=== PATIENT | male | born 1990 | race Caucasian/White ===

== ENCOUNTER 2020-02-29 19:18 | Observation (INO) | payer OTHER, SELFPAY ==
--- NOTE | ~2020-02-29 | US_ITS ---
EXAMINATION: US renal BI EXAM DATE: 03/01/2020 11:10 INDICATION: Acute kidney insufficiency. TECHNIQUE: Multiple grayscale and Doppler images of the kidneys were obtained (by a technologist who performed the scan) and subsequently reviewed. There is no prior study for comparison. FINDINGS: Right kidney: There is normal contour and echogenicity. It measures 11.7 x 4.6 x 6.6 centimeters. T here are no focal renal lesions identified. There is no hydronephrosis. Left kidney: There is normal contour and echogenicity. It measures 13.9 x 5.7 x 5.4 centimeters. Th ere are no focal renal lesions identified. There is no hydronephrosis. Bladder unremarkable. IMPRESSION: 1. Sonographically unremarkable kidneys. Reviewed, dictated and finalized at location B.
[2020-02-29 19:22] VITALS: BP 145/100; PULSE 98; RESP 18; TEMP 36.8; O2SAT 100
[2020-02-29 19:58] LABS: Basophils Percent Auto 0.2 % (0.2-1.2); Eosinophils Absolute Auto 0.5 K/mm3 (0-0.3); Eosinophils Percent Auto 5.4 % (0-4.4); Hematocrit 39.5 % (42.0-52.0); Hemoglobin 13.3 g/dL (14.0-18.0); Immature Granulocyte Absolute 0.02 K/mm3 (0.00-0.031); Immature Granulocyte Percent A 0.2 % (0-0.5); Lymphocytes Absolute Auto 1.18 K/mm3 (0.9-3.2); Lymphocytes Percent Auto 12.8 % (18.3-44.2); Mean Corpuscular HGB Conc 33.7 g/dl (32-36); Mean Corpuscular Hemoglobin 28.7 pg (26-34); Mean Corpuscular Volume 85.1 fl (80-100); Mean Platelet Volume 8.3 fl (7.4-10.4); Monocytes Absolute Auto 0.7 K/mm3 (0.1-0.6); Monocytes Percent Auto 7.3 % (2.6-8.5); Neutrophils Absolute Auto 6.8 K/mm3 (1.3-6.7); Neutrophils Percent Auto 74.1 % (45.5-73.1); Platelet Count Result 273 k/mm3 (150-375); Red Blood Count 4.64 M/mm3 (4.6-6.20); White Blood Count 9.2 K/mm3 (4.5-10.0)
[2020-02-29 20:06] LABS: Add Urine Microscopic? YES; Appearance Urine Clear (Clear); Bilirubin Urine Negative (Negative); Blood Urine Negative (Negative); Color Urine Yellow (Yellow); Glucose Urine UA Negative (Negative); Ketones Urine Negative (Negative); Leukocyte Esterase Ur Negative LEU/UL (Negative); Mucus Urine Few /lpf; Nitrate Urine Negative (Negative); Protein Urine 1+ mg/dL (Negative); RBC Urine 0-2 /hpf (0-2); Squamous Epithelial Cell Urine Rare /hpf (Few); WBC Urine 0-3 /hpf
[2020-02-29 20:07] LABS: Specific Grav Ur 1.032 (1.001-1.035)
[2020-02-29 20:08] LABS: Creatine Kinase 222 U/L (55-170)
[2020-02-29 20:10] LABS: Blood Urea Nitrogen 22 mg/dL (9-20); Calcium 8.7 mg/dL (8.4-10.2); Carbon Dioxide 26 mmol/L (22-30); Chloride 105 mmol/L (98-107); Estimated CRCL calculation 75 ml/min; Estimated Glomerular Filt Rate 47; Glucose 100 mg/dL (75-110); INR 1.1; Potassium 3.7 mmol/L (3.4-5.0); Prothrombin Time 13.5 Seconds (11.1-14.7); Sodium 141 mmol/L (137-145)
[2020-02-29 20:11] LABS: Partial Thromboplastin Time 28.6 SECONDS (22.3-36.8)
--- NOTE | 2020-02-29 20:51 | ED.GENADULT ---
HPI - General Adult General Chief complaint: Skin/Abscess/Foreign Body Stated complaint: I got a bite on my leg Time Seen by Provider: 02/29/20 19:23 History of Present Illness HPI narrative: Patient is a 29 y/o CM who p/w a lesion to the left calf and rash to the lower extremities. Patient reports he noticed a bump on his leg yesterday that was itching. He feels like it was blistered and popped today. Also today he developed a rash to the lower extremities. It is red and nonblanching. Is not painful. Reports mild calf discomfort on the left side. No lymphangitic streaking. No fevers but does report chills/sweats last night. He reports that 3 days ago he was cleaning his garage and there was some brown recluse spiders in there but he does not recall being bit or having any pain on Thursday or Thursday. Related Data Home Medications Medication Instructions Recorded Confirmed No Home Medications 02/29/20 02/29/20 Allergies Allergy/AdvReac Type Severity Reaction Status Date / Time No Known Allergies Allergy Unverified 02/29/20 19:20 Review of Systems Constitutional: Constitutional: Denies chills and Reports fever(s) Comments: Sweats at night ENT: Denies nasal congestion and Denies sore throat Cardiovascular: Cardiovascular: Denies chest pain and Denies radiating jaw, neck or arm pain Respiratory: Respiratory: Denies cough, Denies dyspnea and Denies wheezing Musculoskeletal: Musculoskeletal: Reports muscle cramps Integumentary/Breasts: Skin/Breast: Reports pruritus, Reports rash and Reports skin ulcer PMFSH Past Medical History Medical History No pertinent past medical history Surgical History Surgical History No pertinent past surgical history Family History Family History Mother Acute myocardial infarction Social History Social History Smoking status: Never smoker Alcohol intake: current Drinks per week: 1 Substance use: current Substance use type: marijuana Gender identity (if verbalized by the patient): Male Spiritual care concerns: No Exam Narrative: Exam Narrative: GENERAL: Well-appearing, obese, and in no acute distress. HEAD: Normocephalic, atraumatic. ENT: Mucous membranes moist. CHEST: Clear to auscultation. No respiratory distress. HEART: Regular rate and rhythm. Normal peripheral pulses. EXTREMITIES: Normal range of motion. No edema. SKIN: Warm, dry, petechiae to bilateral lower extremities. Left calf with area of skin disruption that is about the size of a dime. Underlying red tissue that is not cellulitic or truly ulcerated, no drainage. NEURO: Alert and oriented x3. PSYCH: Normal mood and affect. Course Course Emergency Course: Discussed case with Dr. Keys and he will be happy to follow along as well as Dr. Mcdaniel who will see the patient in consultation for potential debridement of wound and potential biopsy of rash. Given the bilateral nature of the petechiae I am concerned patient could have some vasculitis that is causing his skin disruption as well as renal insufficiency. Vital Signs Vital signs: Vital Signs Temperature 98.2 F 02/29/20 19:22 Pulse Rate 98 02/29/20 19:22 Respiratory Rate 18 02/29/20 19:22 Blood Pressure 145/100 H 02/29/20 19:22 Pulse Oximetry 100 02/29/20 19:22 Temperature 99.2 F 03/01/20 01:38 Pulse Rate 92 03/01/20 01:38 Respiratory Rate 12 03/01/20 01:38 Blood Pressure 142/93 H 03/01/20 01:38 Pulse Oximetry 99 03/01/20 01:38 Medical Decision Making Vital Signs Vital Signs: Vital Signs Temperature 98.2 F 02/29/20 19:22 Pulse Rate 98 02/29/20 19:22 Respiratory Rate 18 02/29/20 19:22 Blood Pressure 145/100 H 02/29/20 19:22 Pulse Oximetry 100 02/29/20 19:22 Tempera
[2020-02-29 21:38] VITALS: BP 154/98; PULSE 84; RESP 19; TEMP 36.4; O2SAT 100
[2020-02-29 23:26] VITALS: BP 134/87; PULSE 70; RESP 19; O2SAT 100
[2020-03-01 00:50] VITALS: BP 144/87; PULSE 80; RESP 19; TEMP 37.2; O2SAT 100
--- NOTE | 2020-03-01 00:54 | ADMGEN ---
This patient, Beck Perla, was admitted to Medical Room 250-. Patient/family oriented to hospital policies and general routines including ID bracelet, bed and alarms, visiting hours, pain management, procedures, bathroom and other care routines, personal items, smoking policy, room service/diet, and visiting hours. Valuables list has been completed. Information on how to activate the Rapid Response Team has been discussed. Patient/Family are encouraged to report perceived risks to care and to ask questions if they do not understand what they are told or what they should do.
[2020-03-01] MEDS: SODIUM CHLORIDE 0.9% IV 1,000 ML 125 ML IV CONT ×2 (01:05→07:57)
[2020-03-01 01:31] VITALS: BMI 36.3
[2020-03-01 01:38] VITALS: BP 142/93; PULSE 92; RESP 12; TEMP 37.3; O2SAT 99
--- NOTE | 2020-03-01 03:44 | PM.IMHP ---
H&P: HPI History of Present Illness Chief complaint: renal insufficiency, spider bite, vasculitis Narrative: This is a 29 year old male with know significant past medical history who presented to the hospital with a complaint of a deep purplish lesion located on the back of his left lower leg. The patient believes that he might have gotten bitten by a recluse spider while he was in his garage the day before yesterday. He initially noticed a bump on his leg that was pruritic. The lesion became a blister and opened. Yesterday he noticed a rash to both of his lower extremities which only involves the lower aspect of both legs and is red and pin point and does not leola. The patient denies any respiratory symptoms, recent illness, fevers, wheezing, nasal symptoms, hematuria, chest pain, headache, blurry vision, nausea, vomiting, diarrhea or rectal bleeding. He does however report chills and sweats last night. He has also had mild diffuse abdominal discomfort, diffuse body aches and joint aches. Both of his hands feel tingly. He has been using ibuprofen every other day for the past few weeks. He denies any recent exposure to contrast agents. The patient was evaluated in the ER tonight and found to have a petechial vasculitic rash involving both of his lower extremities. He was also found to have mild acute renal failure and eosinophilia on routine labs. Urinalysis demonstrated + protein but no microscopic hematuria. ER provider has consulted Nephrology and Plastic Surgery to evaluate the patient and we have been asked to admit him for further care. No other complaints. Review of Systems Review of Systems: All systems reviewed & are unremarkable except as noted in HPI and below PMFSH Past Medical History Medical History No pertinent past medical history Surgical History Surgical History No pertinent past surgical history Family History Family History Mother Acute myocardial infarction Social History Social History Smoking status: Never smoker Alcohol intake: current Drinks per week: 1 Substance use: current Substance use type: marijuana Gender identity (if verbalized by the patient): Male Spiritual care concerns: No Meds Home Medications and Allergies Home Medications Medication Instructions Recorded Confirmed Type No Home Medications 02/29/20 02/29/20 History Allergies Allergy/AdvReac Type Severity Reaction Status Date / Time No Known Allergies Allergy Unverified 02/29/20 19:20 Vital Signs Vital Signs - 24 hr 02/29/20 19:22 02/29/20 21:38 02/29/20 23:26 Temperature 36.8 C 36.4 C Pulse Rate 98 84 70 Respiratory Rate 18 19 19 Blood Pressure 145/100 H 154/98 H 134/87 Pulse Oximetry 100 100 100 03/01/20 00:50 03/01/20 01:38 Temperature 37.2 C 37.3 C Pulse Rate 80 92 Respiratory Rate 19 12 Blood Pressure 144/87 H 142/93 H Pulse Oximetry 100 99 Exam Const: General: cooperative, healthy appearing, no acute distress, alert and awake Nutritional Appearance: well nourished Orientation/consciousness: patient oriented x3 HENMT: Head: normal to inspection General nose exam: Normal external nose present Face and sinus: normal facial exam Mouth: Yes Normal oral and palatal mucosa present and Yes oropharynx normal Eyes: Pupils: Equal, round and reactive pupils present EOM: EOMs intact bilaterally Neck: Neck: supple and no JVD Thyroid: thyroid normal Resp: Effort & Inspection: normal respiratory effort Auscultation: clear to auscultation bilaterally Cardio: Rate: regular rate Rhythm: regular rhythm Heart sounds: no murmurs GI: Inspection: normal to inspection Auscultation: normal bowel sounds Skin: General skin exam: normal color, petechiae (Bilateral pe
[2020-03-01 06:00] VITALS: BP 126/77; PULSE 96; RESP 12; TEMP 37; O2SAT 99
[2020-03-01 06:22] LABS: Basophils Percent Auto 0.2 % (0.2-1.2); Eosinophils Absolute Auto 0.4 K/mm3 (0-0.3); Eosinophils Percent Auto 3.4 % (0-4.4); Hematocrit 36.4 % (42.0-52.0); Hemoglobin 12.4 g/dL (14.0-18.0); Immature Granulocyte Absolute 0.02 K/mm3 (0.00-0.031); Immature Granulocyte Percent A 0.2 % (0-0.5); Lymphocytes Absolute Auto 0.87 K/mm3 (0.9-3.2); Lymphocytes Percent Auto 8.2 % (18.3-44.2); Mean Corpuscular HGB Conc 34.1 g/dl (32-36); Mean Platelet Volume 8.9 fl (7.4-10.4); Monocytes Absolute Auto 0.8 K/mm3 (0.1-0.6); Monocytes Percent Auto 7.1 % (2.6-8.5); Neutrophils Absolute Auto 8.5 K/mm3 (1.3-6.7); Neutrophils Percent Auto 80.9 % (45.5-73.1); Platelet Count Result 251 k/mm3 (150-375); Red Blood Count 4.28 M/mm3 (4.6-6.20); Red Cell Distribution Width 11.8 % (11.5-14.5); White Blood Count 10.6 K/mm3 (4.5-10.0)
[2020-03-01 06:37] LABS: Blood Urea Nitrogen 20 mg/dL (9-20); Calcium 8.2 mg/dL (8.4-10.2); Carbon Dioxide 25 mmol/L (22-30); Chloride 106 mmol/L (98-107); Estimated CRCL calculation 145 ml/min; Estimated Glomerular Filt Rate > 60; Glucose 102 mg/dL (75-110); Potassium 3.8 mmol/L (3.4-5.0); Sodium 135 mmol/L (137-145)
[2020-03-01 06:39] LABS: CRP 6.6 mg/dL (<1.0)
[2020-03-01 06:43] LABS: Complement C3 121 mg/dL (88-165); Rheumatoid Factor < 8.6 IU/ML (<12)
[2020-03-01 07:10] LABS: Creatinine Urine 149.8 mg/dL; Total Protein Urine Random 9 mg/dL
[2020-03-01 07:21] LABS: HIV 1/2 Ab P24 Ag Result Negative (Negative)
[2020-03-01 07:21] LABS: Sodium Urine Random 245 meq/L
[2020-03-01 07:56] LABS: Erythrocyte Sedimentation Rate 27 mm/hr (0-20)
[2020-03-01] MEDS: ENOXAPARIN 40 MG/0.4 ML SYRINGE SUB-Q (07:58)
[2020-03-01 10:31] LABS: Hepatitis B Surface Antigen Negative (Negative)
[2020-03-01 11:12] LABS: Hepatitis C Virus Antibody Negative (Negative)
--- NOTE | 2020-03-01 11:39 | WPDCN ---
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 No surgicl intervention planned at this time. Recommend continue IV antibiotics, possibly oral Abx at home. May follow up in my office. Tingling in fingers not known to be directly related. He has no signs of CTS. Fever, chills, rash and GI symptoms may accompany a BR bite. Silvergel dressing daily. May shower. (4) Chronic venous insufficiency of lower extremity: Code(s): I87.2 - Venous insufficiency (chronic) (peripheral) Status: Acute Assessment and Plan: Pt does not report morbidity related to this but should discuss it with his Primary MD. (5) Tobacco dependence: Code(s): F17.200 - Nicotine dependence, unspecified, uncomplicated Status: Acute Assessment and Plan: Managed by others. (6) Cellulitis and abscess of left lower extremity: Onset Date: ~02/2020 Code(s): L03.116 - Cellulitis of left lower limb; L02.416 - Cutaneous abscess of left lower limb Status: Acute Assessment and Plan: I will monitor this daily while in hospital, office later. Likely will respond to antibiotics. Surgical debridement occasionally required. Additional Plan I will follow. [facility] Data of Consult Date/Time: 03/01/20 11:39 Requesting Physician: Soniya Fraga PA-C Primary Care Provider: MATHEMATICIAN PHYSICIAN Consult Narrative Narrative: Beck Perla is a 29 year old male who was admitted yesterday after being at work. His complaint was primarily pain and skin discoloration in a 2 x 3 cm area on his right calf. He believed onset was Thursday while he was working in his garage. He says there were brown recluse spiders of the garage. He does not recall a bite. The area began to itch and developed blistering. This area has become quite painful. On admission he has erythema surrounding this. There is no lymphangitis. He had a low-grade fever around the time of admission. He tells me he does smoke. On admission he was noted to have a rash or vasculitis covering both lower legs from mid calf to his ankle. He says this does not itch. He points that that he has large sometimes swollen legs with notable varicosities. He is aware that as a chronic condition he has had brown patches on his legs related to the above. He is able to distinguish between the new vasculitic appearance and the chronic brawny induration. He has no history of ulcerations from venous stasis disease. 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 He wears boots up to the mid calf. These are rubber. He works along the [place]. He is not aware that anything would have gotten inside of his boot. The area the boots cover is roughly the same area as his vasculitis or rash. He is not sure how long he would have had the rash/vasculitis he thinks he might have simply overlooked it. On admission he also complained of some tingling or numbness in both hands. At the time I am seeing him this has resolved. Some of his labs on admission suggest he may have been dehydrated. He says he tries to drink approximately a gal of water each day while he is working. Review of Systems Review of Systems: All systems reviewed & are unremarkable except as noted in HPI and below Constitutional: Constitutional: Reports as per HPI Respiratory: Respiratory: Reports no additional respiratory co
[2020-03-01 14:19] LABS: Hepatitis B Surface Anti Res Indeterminate
[2020-03-01 14:23] VITALS: BP 145/80; PULSE 93; RESP 18; TEMP 36.9; O2SAT 99
--- NOTE | 2020-03-01 15:20 | PM.CNNEP ---
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 Additional Plan Beck had an episode of acute kidney injury/acute renal failure that appears to have resolved by his a.m. labs. It would appear that when he was working in his garage he may not have been adequately hydrate himself thereby resulting in some degree of volume depletion/dehydration the presumably cause the a for mentioned rise in his creatinine. Without any significant intervention other than IV fluids, his kidney function at this her in back to baseline argue in favor of this diagnosis. I am unclear as to the relevance of the a for mentioned petechial rash and whether not this even related to his renal failure or a coincidence that occurred at the same time. Given the concern for possible vasculitis he underwent an extensive serological evaluation and although all the test results are not back, the ones that have resulted have so far been negative. The etiology of the a for mentioned rash may be as simple as a contact dermatitis from the shoes/boots he was wearing versus some other etiological agent that may not be completely clear but it would seem that vasculitis seems less likely. As his renal function is back to baseline and he has no other critical electrolyte abnormalities or acute concerns, I would not be opposed to discharge with follow-up with Dr. Mcdaniel to assess improvement in that rash and suspected brown recluse spider bite. Thank you for allowing me to participate in the care this patient. History of Present Illness Reason for Consult Consult date: 03/01/20 Reason for consult: acute renal failure Chief Complaint Chief complaint: renal insufficiency, spider bite, vasculitis History of Present Illness Narrative: 29 year old male with no significant past medical history who presented to [facility] with a complaint of a deep purplish lesion located on the back of his left lower leg. The patient has concerns that he might have gotten bitten by a brown recluse spider while he was in cleaning his garage the day before admission. He initially noticed a bump on his leg that was pruritic. The lesion became a blister spontaneously ruptured. Following this, he noticed a rash to both of his lower extremities which only involves the lower aspect of both legs and is red and pin point and does not leola. He denies any other systemic symptoms or problems aside from some chills and occassional night sweats associated with diffues body and joint aches. Workup and evaluation emergency room demonstrated the patient to be hemodynamically stable and his physical exam did not note a PT kill/vasculitic rash involving both of his lower extremities. Routine blood tests were significant for acute kidney injury/acute renal failure in association with SNF ileus. His urinalysis was significant for 1+ protein but no evidence of hematuria or red cell casts. Because of the concern for possible vasculitis that may be causing his renal failure and other subjective symptoms, he was admitted the hospital for further evaluation and therapy. Renal consultation was requested due to the a for mentioned acute kidney injury/acute renal failure. Interestingly, at the time my evaluation, his kidney function has returned to normal after IV fluid hydration overnight. On further questioning with the patient, he believes that when he was working out in the garage he may not have been drinking as much as she should of to keep himself hydrated. Furthermore, he now wonders if issues/boots he wa
--- NOTE | 2020-03-01 15:32 | PM.IMPN ---
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 r/o microscopic polyangiitis as the patient his eosinphilia, kidney involvement, and neuropathy affecting his hands among other types of vasculitis and mimickers. At this time we will give benadryl and elevate his legs for his symptoms. Check ANCA, NA, RF, C3, C4, Hep B and C, HIV, ERS, CRP.. We will consider initiating steroid therapy. Plastic Surgery has been consulted to evaluate the patient's purpuric lesion. (2) Acute renal failure: Code(s): N17.9 - Acute kidney failure, unspecified Status: Acute Assessment and Plan: dehdyration vs. vasculitis? - Continue IV fluid challenge overnight. Monitor renal function, avoid nephrotoxic agents, renally dose medications. Nephrology has been consulted by ER provider. (3) Tobacco dependence: Code(s): F17.200 - Nicotine dependence, unspecified, uncomplicated Status: Acute Assessment and Plan: I counseled the patient regarding tobacco cessation. He does not desire a nicotine patch at this time. Time Spent With Patient Time with patient: 25 - 35 minutes Subjective Date/time seen: 03/01/20 15:32 Interval history: * Review of Systems Review of Systems: All systems reviewed & are unremarkable except as noted in HPI and below Exam Narrative: Exam Narrative: General: *-year-old * laying flat in bed. Appears comfortable. In no acute distress. Skin: No jaundice or cyanosis. Good skin turgor. Neck: Full range of motion. Supple. Nontender. Respiratory: Lungs are clear to auscultation bilaterally. No bony chest wall tenderness. Cardiovascular: The heart has a regular rate and rhythm without murmur. No carotid bruits. Lower extremities: No lower extremity edema. Distal pulses are easily palpated. No calf tenderness to palpation. Gastrointestinal: The abdomen is soft, nontender and nondistended with active bowel sounds. Psychiatric: Lucid and oriented. Memory intact. Neurologic: No focal deficits. Speech is clear. No facial drooping. Objective Data Vital Signs Vital Signs: Vital Signs - 24 hr 02/29/20 19:22 02/29/20 21:38 02/29/20 23:26 Temperature 98.2 F 97.6 F Pulse Rate 98 84 70 Respiratory Rate 18 19 19 Blood Pressure 145/100 H 154/98 H 134/87 Pulse Oximetry 100 100 100 03/01/20 00:50 03/01/20 01:38 03/01/20 06:00 Temperature 98.9 F 99.2 F 98.6 F Pulse Rate 80 92 96 Respiratory Rate 19 12 12 Blood Pressure 144/87 H 142/93 H 126/77 Pulse Oximetry 100 99 99 03/01/20 14:23 Temperature 98.5 F Pulse Rate 93 Respiratory Rate 18 Blood Pressure 145/80 H Pulse Oximetry 99 Intake/Output Intake/Output: Intake & Output 02/27/20 02/28/20 02/29/20 03/01/20 23:59 23:59 23:59 23:59 Intake Total 1480 Output Total 70 Balance 1410 Meds/Results Medications: Active Medications Generic Name Dose Route Start Last Admin Trade Name Freq PRN Reason Stop Dose Admin Acetaminophen 650 mg 02/29/20 23:59 Tylenol Tablet PO Q4H PRN Mild Pain (1-3) or Fever Hydrocodone Bitart/Acetaminophen 1 tab 02/29/20 23:59 03/01/20 07:57 Marilla 5-325 Mg PO 1 tab Q4H PRN Administration Pain Rated 4-6 Enoxaparin Sodium 40 mg 03/01/20 09:00 03/01/20 07:58 Lovenox SUB-Q 40 mg DAILY STEPHANIE Administration Sodium Chloride 1,000 mls @ 125 mls/hr 02/29/20 23:45 03/01/20 07:57 Normal Saline Iv IV CONT 125 mls/hr .Q8H STEPHANIE Administration Morphine Sulfate 4 mg 02/29/20 23:59 Morphine Sulfate Inj IV PUSH Q2H PRN Pain Rated 7-10 Ondansetron HCl 4 mg 02/29/20 23:59 Zofran Inj IV PUSH Q4H PRN Nausea Silver Nitrate 1 applic 03/01/20 13:05 Silvergel TOPICAL QAM [facility] Radiology Results: ITS Impressions Renal Ultra
--- NOTE | 2020-03-01 15:45 | PM.DS ---
DS: Admitting Diagnosis Admitting Diagnosis Admitting Diagnosis: Vasculitis limited to the skin, unspecified DS: Discharge Diagnosis Discharge Diagnosis (1) Brown recluse spider bite: Code(s): T63.331A - Toxic effect of venom of brown recluse spider, accidental (unintentional), initial encounter Status: Acute Assessment and Plan: On examination the patient appears to have a brown recluse spider bite to his left upper calf. Dr. Mcdaniel plastic surgery evaluated the patient and recommends placing him on antibiotics and having him follow-up in the office as an outpatient. Dr. Mcdaniel did not feel he needed any debridement at this time of his wound. The patient is otherwise feeling well at this time without any concerns or issues. He believes some of the redness around the spider bite has gone down since admission. The patient states he has to go home because he has his 2 children in his grandmother who is 90 is taking care of them currently. I believe the patient is stable to discharged and will given oral antibiotics, Keflex, to be discharge with further treatment of his spider bite. Explained the patient's of risks of going home and worsening symptoms that can occur her and return to emergency room precautions. Patient understands and agrees the plan at this time. Will have the patient call Dr. Mcdaniel and have a appointment within 1 week for further evaluation upon discharge. Patient does not have a primary care provider but I recommended him to find one and again follow-up for further evaluation. 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 So far his rheumatoid factor is normal, hep B and C are both normal, his HIV is negative. His complements testing C3 and C4 are both negative as well. His CRP and ESR are elevated which is not uncommon with his infection from brown recluse spider bite. Pending his NA at this time. Patient will be discharged home and recommended him to follow-up with his primary care provider within [address] Mcdaniel. (3) Acute renal failure: Code(s): N17.9 - Acute kidney failure, unspecified Status: Acute Assessment and Plan: dehdyration seems to be the most likely cause since he works outside. Creatinine returned to normal after IV fluids. Told him to remain hydrated and will be discharged home. (4) Tobacco dependence: Code(s): F17.200 - Nicotine dependence, unspecified, uncomplicated Status: Acute Assessment and Plan: I counseled the patient regarding tobacco cessation. He does not desire a nicotine patch at this time. DS: Summary Hospital Course Reason for hospitalization: 29-year-old man with no chronic medical history, who presented to the ER with worsening pain, swelling, redness and a large darkened area to his left calf which he noticed about 24 hours earlier while at work. Patient works outside wears large boots and when he removed his boots he saw there was a darkened area to his skin and symptoms became worse today which brought him to the ER. Initial vitals showed temperature of 98.2?, blood pressure 145/100, heart rate 98, respiratory rate 18, oxygen saturation 100% on room air. Initial labs showed, WBC 9.2 with elevated neutrophils at 74%, slight normocytic anemia with a hemoglobin of 13.3, normal coag panel, BMP showed creatinine was elevated 1.7, BUN 22, total CK was 222. CRP was elevated at 6.6. Urinalysis showed 1+ protein and urobilinogen 4. He was admitted for IV fluid hydration for JACQUELIN, further evaluation of wound to leg which included work up for vasculitis, rule out Hepat
[2020-03-01] MEDS: SILVERGEL (ELTA) 45 ML 1 APPLIC TOPICAL (16:15)
[2020-03-05 22:08] LABS: ANCA Screen Negative (Negative)
--- NOTE | 2020-03-06 13:51 | PC.NURSE ---
NA and ANCA are both negative.
[2020-03-06 16:56] LABS: Chloride Rand Ur 178 mmol/L (32-290); Chloride/Creatinine Rand Ur 124 (23-275); Creatinine Random Urine 143 mg/dL (20-320)
[2020-03-06 22:44] LABS: Myoglobin, Urine <27 mcg/L (<28)
== END 2020-03-01 17:29 | disposition home or self-care (01) ==
LOC: ANHED 23:47 → ANH2MED 03-01 00:29
PROVIDERS: Internal Medicine Nephrology; Admitting Provider Family Medicine; Emergency Provider Emergency Medicine; Visit Provider Internal Medicine
DX: L95.9 Vasculitis limited to the skin, unspecified (principal); L03.116 Cellulitis of left lower limb; N17.9 Acute kidney failure, unspecified; T63.331A Toxic effect of venom of brown recluse spider, accidental (unintentional), initial encounter; I87.2 Venous insufficiency (chronic) (peripheral)
CPT/HCPCS: 36415; 76775; 80048; 81001; 81050; 82436; 82550; 82570; 83874; 84156; 84300; 85025; 85610; 85652; 85730; 85999; 86021; 86038; 86140; 86160; 86430; 86703; 86706; 86803; 87340; 96361; 96365; 96372; 96375; 99285; A9270; G0378; G0432; J0690; J1200; J1650; J7030

== ENCOUNTER 2021-06-10 11:40 | Emergency (ER) | payer OTHER, SELFPAY ==
[2021-06-10 11:49] VITALS: BP 127/81; PULSE 70; RESP 16; TEMP 36.2; O2SAT 100
--- NOTE | 2021-06-10 12:21 | ED.SKABFB ---
HPI - Skin/Abscess/Foreign Bdy General Chief complaint: Wound/Laceration Stated complaint: Insect Bite Source: patient and RN notes reviewed Mode of arrival: ambulatory Limitations: no limitations History of Present Illness HPI narrative: Patient states he woke up Thursday with a small bump in his left axillae 3 days ago. He states by the following day redness was on his posterior arm along bicep and increasing in size daily. Denies fever, chills. states pain is 6/10 at rest and 10/10 at bedtime. He has taken Ibuprofen for pain relief at home. Patient states he has full movement and sensation of left arm. Related Data Allergies Allergy/AdvReac Type Severity Reaction Status Date / Time No Known Allergies Allergy Unverified 02/29/20 19:20 Review of Systems Review of Systems: CONSTITUTIONAL: Denies body aches, fever, chills, or sweats. EYES: Denies visual changes, redness, or discharge. ENT: Denies rhinorrhea, congestion, sore throat, or otalgia. CARDIOVASCULAR: Denies chest pain, palpitations, or edema. RESPIRATORY: Denies cough or dyspnea. GASTROINTESTINAL: Denies abdominal pain, nausea, vomiting, or diarrhea. GENITOURINARY: Denies dysuria or hematuria. SKIN: + redness to left axillae and bicep, + bump in left axilla .Denies rash, itching, or wounds. MUSCULOSKELETAL: Denies back pain, joint pain, or myalgia. NEUROLOGIC: Denies headache, numbness, tingling, or weakness. PSYCH: Denies depression or anxiety. [facility] Past Medical History Medical History (Updated 06/10/21 @ 12:35 by Maria Del Carmen Choi, [facility], ) No pertinent past medical history Surgical History Surgical History No pertinent past surgical history Family History Family History Mother Acute myocardial infarction Social History Social History Smoking status: Never smoker Alcohol intake: current Drinks per week: 1 Substance use: current Substance use type: marijuana Gender identity (if verbalized by the patient): Male Spiritual care concerns: No Comments At time of signature, I have reviewed and agree with nursing past medical, surgical, social and family history unless otherwise noted. Please see nursing chart for further information. There is no relevant family history pertinent to the presenting complaint Exam Narrative: GENERAL: Well-appearing, well-nourished, and in no acute distress. HEAD: Normocephalic, atraumatic. EYES: EOMI. No redness or drainage. Conjunctivae normal. ENT: Mucous membranes pink and moist. NECK: Normal AROM. Supple. No lymphadenopathy. MUSCULOSKELETAL: No bony tenderness. EXTREMITIES: Normal range of motion. 30cm x 12cm area of erythema to medial upper arm, warm to touch. No induration, no fluctuance. Distal sensation intact. Capillary refill normal. Radial pulse normal. Full range of motion of the wrist, elbow, and shoulder. SKIN: Warm, dry, no rash. Capillary refill normal. Normal skin turgor. NEURO: No focal deficits. Alert and oriented x3. Gait steady. PSYCH: Normal affect. No signs of depression or anxiety. Course Vital Signs Vital signs: Vital Signs Temperature 97.1 F L 06/10/21 11:49 Pulse Rate 70 06/10/21 11:49 Respiratory Rate 16 06/10/21 11:49 Blood Pressure 127/81 06/10/21 11:49 Pulse Oximetry 100 06/10/21 11:49 Temperature 97.1 F L 06/10/21 11:49 Pulse Rate 70 06/10/21 11:49 Respiratory Rate 16 06/10/21 11:49 Blood Pressure 127/81 06/10/21 11:49 Pulse Oximetry 100 06/10/21 11:49 Reviewed. Pt has been instructed to follow up with his PCP regarding his elevated blood pressure today. MDM - Skin/Abscess/Foreign Bdy Differential Diagnosis Differential diagnosis: Likely abscess of skin or subcutaneous tissue, cellulitis, insect bites and contact dermatitis Critical Care Time
== END 2021-06-10 12:40 | disposition home or self-care (01) ==
PROVIDERS: Emergency Provider Nurse Practitioner
DX: L03.114 Cellulitis of left upper limb (principal)
CPT/HCPCS: 99213; G0463

== ENCOUNTER 2023-09-06 01:04 | Emergency (ER) | payer SELFPAY ==
--- NOTE | ~2023-09-06 | XR_ITS ---
EXAMINATION: XR hand RT min 3V DATE: 09/06/2023 02:28 INDICATION: Right hand injury. TECHNIQUE: 3 views of right hand were obtained. COMPARISON: None. FINDINGS: Bone alignment is normal. No acute fracture. There is an old healed fracture of diaphysis o f fifth metacarpal. The joint spaces are normal. There is dorsal hand soft tissue swelling. IMPRESSION: 1. No acute fracture. Reviewed, dictated and finalized at location A. [employer] IMPRESSION: 1. No acute fracture.
[2023-09-06 01:11] VITALS: BP 152/105; PULSE 109; RESP 20; TEMP 36.4; O2SAT 96
--- NOTE | 2023-09-06 02:48 | ED.GENADULT ---
[facility] - General Adult General Chief complaint: Wound/Laceration Stated complaint: Right hand lac from scissors Time Seen by Provider: 09/06/23 02:45 Source: patient Mode of arrival: ambulatory Limitations: no limitations History of Present Illness HPI narrative: This is a 33-year-old male who presents to the ED with chief complaint of a right hand injury occurring just prior to arrival. Patient states he was walking finger with scissors in his hand when he stumbled on a child's toy on the floor. Reports that he fell to the ground and had the pair scissors go into the dorsum of the right hand. Reports significant bleeding a at the time but it seems to be slowing down. Denies any further sites of pain or injury Related Data Allergies Allergy/AdvReac Type Severity Reaction Status Date / Time No Known Allergies Allergy Verified 09/06/23 01:16 Review of Systems Review of Systems: All systems as dictated in [facility] Past Medical History Medical History (Updated 09/06/23 @ 03:09 by Ilan Velasquez PA-C) No pertinent past medical history Surgical History Surgical History No pertinent past surgical history Family History Family History Mother Acute myocardial infarction Social History Social History Smoking status: Never smoker Alcohol intake: current Drinks per week: 1 Substance use: current Substance use type: marijuana Gender identity (if verbalized by the patient): Male Spiritual care concerns: No Exam Narrative: GENERAL: Well-appearing, well-nourished, and in no acute distress. HEAD: Normocephalic, atraumatic. EYES: PERRLA and EOMI. ENT: Nares clear, no rhinorrhea or epistaxis. Mucous membranes moist. Oropharynx without tonsillar hypertrophy exudate or other lesions. NECK: Supple. No adenopathy or masses. CHEST: No respiratory distress. Clear to auscultation. No wheezes rales or rhonchi HEART: Regular rate and rhythm. No murmur heard. Normal peripheral pulses. ABDOMEN: Soft, nontender, nondistended, normal active bowel sounds. MSK: Left hand benign. Right hand unable to extend index finger at all. Right middle finger with limited extension but my intact in the index. Thumb, ring finger and pinky finger are all intact. Cap refill intact throughout the hand. Sensation intact. Able fully make a fist. SKIN: Significant swelling to the dorsum of the right hand. 1.5-2 cm laceration/puncture wound noted to the dorsum of the right hand laterally. Bleeding controlled. Markedly tender. NEURO: Alert and oriented x3. No focal deficits. PSYCH: Normal mood and affect. Course Course Emergency Course: Consult 0 300: Spoke to Dr. Cornelius ([facility]), who recommends to have the patient transferred from ED to ED over to [facility] so that they can evaluate the patient. They are concerned that if he waits over this long weekend the tendons over tract and they are difficulty with repair this week. Consult 0305: Spoke with Dr. Lester ([facility]) who will accept the patient for transfer. Vital Signs Vital signs: Vital Signs Temperature 97.5 F L 09/06/23 01:11 Pulse Rate 109 H 09/06/23 01:11 Respiratory Rate 20 09/06/23 01:11 Blood Pressure 152/105 H 09/06/23 01:11 Pulse Oximetry 96 09/06/23 01:11 Oxygen Delivery Room Air 09/06/23 01:11 Temperature 97.5 F L 09/06/23 01:11 Pulse Rate 109 H 09/06/23 01:11 Respiratory Rate 20 09/06/23 01:11 Blood Pressure 152/105 H 09/06/23 01:11 Pulse Oximetry 96 09/06/23 01:11 Oxygen Delivery Room Air 09/06/23 01:11 Medical Decision Making MDM Narrative Medical decision making narrative: This is a 33-year-old male who presents to the ED for chief complaint of right hand injury. He had a puncture wound with paresis to the toes and he has apparent extensor t
[2023-09-06] MEDS: TETANUS,DIPHTHERIA,AC PERTUSSIS ADULT (0.5 ML) BOOSTRIX IM (03:22)
[2023-09-06] MEDS: cefTRIAXone 1 GM VIAL IM (03:22)
== END 2023-09-06 03:50 | disposition short-term general hospital (02) ==
PROVIDERS: Emergency Provider Physician Assistant
DX: S61.431A Puncture wound without foreign body of right hand, initial encounter (principal); S66.320A Laceration of extensor muscle, fascia and tendon of right index finger at wrist and hand level, initial encounter; W26.8XXA Contact with other sharp object(s), not elsewhere classified, initial encounter; Z23 Encounter for immunization
CPT/HCPCS: 73130; 90471; 90715; 96372; 99283; J0696

== ENCOUNTER 2023-10-28 02:18 | Emergency (ER) | payer SELFPAY ==
--- NOTE | ~2023-10-28 | CT_ITS ---
Non-contrast Head CT History: Head injury Technique: Axial non-contrast imaging of the brain was performed. Dose reduction technique was used on this scan by utilizing automated exposure control and iterative reconstruction technique. The dose -length product (DLP) was 681.00 mGy-cm. Findings: There is no evidence of intracranial hemorrhage, mass lesion, or acute infarct. Brain par enchyma appears normal. The ventricles and subarachnoid spaces are normal in size. The calvarium ap pears normal. There is mild sinus disease involving the left maxillary sinus, bilateral ethmoid sinus es, and left frontal sinus The remaining visualized paranasal sinuses and mastoid air cells are clear . Impression: No intracranial abnormality seen. Sinus disease, as above. Reviewed, dictated and finalized at [facility]. [employer] Impression: No intracranial abnormality seen. Sinus disease, as above.
[2023-10-28 02:23] VITALS: BP 120/80; PULSE 86; RESP 20; TEMP 36.7; O2SAT 99
--- NOTE | 2023-10-28 02:31 | ECG_ITS ---
Measurements Intervals [place] Rate: 93 P: 37 [place]: 154 QRS: 18 QRSD: 92 T: 29 QT: 369 QTc: 459 Interpretive Statements SINUS RHYTHM BASELINE ARTIFACT NORMAL ECG NO PREVIOUS ECG AVAILABLE FOR COMPARISON Electronically Signed On 10-28-2023 16:21:50 [employer] by Shane Aiken M.D.
[2023-10-28 02:52] LABS: Basophils Percent Auto 0.3 % (0.2-1.2); Eosinophils Percent Auto 0.2 % (0-4.4); Hematocrit 39.8 % (42.0-52.0); Hemoglobin 12.7 g/dL (14.0-18.0); Immature Granulocyte Absolute 0.04 K/mm3 (0.00-0.031); Immature Granulocyte Percent A 0.4 % (0-0.5); Lymphocytes Absolute Auto 1.57 K/mm3 (0.9-3.2); Lymphocytes Percent Auto 13.9 % (18.3-44.2); Mean Corpuscular HGB Conc 31.9 g/dl (32-36); Mean Corpuscular Hemoglobin 28.4 pg (26-34); Mean Platelet Volume 8.7 fl (7.4-10.4); Monocytes Absolute Auto 0.8 K/mm3 (0.1-0.6); Monocytes Percent Auto 7.4 % (2.6-8.5); Neutrophils Absolute Auto 8.8 K/mm3 (1.3-6.7); Neutrophils Percent Auto 77.8 % (45.5-73.1); Platelet Count Result 335 k/mm3 (150-375); Red Blood Count 4.47 M/mm3 (4.6-6.20); Red Cell Distribution Width 12.4 % (11.5-14.5); White Blood Count 11.3 K/mm3 (4.5-10.0)
--- NOTE | 2023-10-28 02:54 | PC.NURSE ---
Red worthington observed by this RN around the pt's neck, pt denies being choked or doing anything to attempt to end his life. Multiple scratches and bruises noted all over the pt's body in various stages of healing. When asked about these worthington pt stated I fall alot . Pt was asked several times by multiple staff members if he attempted to end his life, if he is currently having suicidal or homicidal thoughts, pt denied this multiple times. Pt states i've had a hell of a past few months pt states he does drugs for recreational use, not to end his life.
--- NOTE | 2023-10-28 02:54 | ED.GENADULT ---
HPI - General Adult General Chief complaint: Overdose Stated complaint: TRAMADOL OD Time Seen by Provider: 10/28/23 02:30 History of Present Illness HPI narrative: 33-year-old male presenting to the emergency department for evaluation after an accidental drug overdose. Patient states he took approximately 5 tramadol of unknown strength today patient states he does normally take 5 but suspects he had a syncopal episode related to this. Patient was found unresponsive and was treated with Narcan by EMS and patient is alert and oriented upon arrival to the emergency department. Patient does have multiple bruises to face arms and legs which he says are related to previous falls. Patient is emphatic this was not an attempt at self-harm but was for pain control and for recreational use. Related Data Allergies Allergy/AdvReac Type Severity Reaction Status Date / Time No Known Allergies Allergy Verified 09/06/23 01:16 Review of Systems Review of Systems: All systems reviewed & are unremarkable except as noted in HPI and below PMFSH Past Medical History Medical History (Updated 10/29/23 @ 00:00 by Marcie Melo) No pertinent past medical history Surgical History Surgical History No pertinent past surgical history Family History Family History Mother Acute myocardial infarction Social History Social History Smoking status: Never smoker Alcohol intake: current Drinks per week: 1 Substance use: current Substance use type: painkillers and prescription drug Gender identity (if verbalized by the patient): Male Spiritual care concerns: No Exam Narrative: APPEARANCE: Well appearing, no pain, no distress, well-nourished. HEAD: normocephalic, atraumatic. EYES: PERRLA/EOMI, conjunctivae clear. NOSE: Normal no drainage EARS:TMS clear with good light reflex. THROAT: Pharynx clear, no exudate. NECK: Supple. No adenopathy, no masses. RESPIRATORY: Airway patent, respirations nonlabored. Clear to auscultation bilaterally, no rales, rhonchi, wheezing. CARDIOVASCULAR: Regular rate and rhythm without murmurs rubs or gallops. ABDOMINAL: Soft, nontender, nondistended, normal bowel sounds MUSCULOSKELETAL: Moves all extremities. Strength/ROM intact, No edema, No calf tenderness. NEURO: Alert. Cranial nerves II through XII intact. Good gait. Good coordination SKIN: Bruising of various stages on her face neck arms and legs PSYCHIATRIC: Flat affect Course Course Emergency Course: 33-year-old male presenting emergency department for evaluation of a tramadol overdose. Patient denies any homicidal or suicidal ideation. Head CT showed no acute intracranial abnormality. Prior to the CT being resulted patient requested to leave the emergency department. Patient was clinically appropriate and was willing to sign the AMA forms. Patient's family members were present. They were not concerned of any intentional overdose. Patient was aware of the risk of leaving AMA. Patient does admit to having issues with substance abuse and patient states he is attempting to quit. Vital Signs Vital signs: Vital Signs Temperature 98.1 F 10/28/23 02:23 Pulse Rate 86 10/28/23 02:23 Respiratory Rate 20 10/28/23 02:23 Blood Pressure 120/80 10/28/23 02:23 Pulse Oximetry 99 10/28/23 02:23 Oxygen Delivery Room Air 10/28/23 02:23 Temperature 98.1 F 10/28/23 02:23 Pulse Rate 89 10/28/23 04:55 Respiratory Rate 15 10/28/23 04:55 Blood Pressure 139/85 10/28/23 04:55 Pulse Oximetry 99 10/28/23 04:55 Oxygen Delivery Room Air 10/28/23 02:23 Medical Decision Making Vital Signs Vital Signs: Vital Signs Temperature 98.1 F 10/28/23 02:23 Pulse Rate 86 10/28/23 02:23 Respiratory Rate 20 10/28/23 02:23 Blood Pressure 120/80
[2023-10-28 03:01] LABS: Alanine Aminotransferase 17 U/L (6-50); Albumin Level 4.3 g/dL (3.5-5.1); Alkaline Phosphatase 76 U/L (38-126); Anion Gap 9 mmol/L (8-16); Aspartate Amino Transferase 43 U/L (17-59); Bilirubin,Total 0.6 mg/dL (0.2-1.3); Blood Urea Nitrogen 15 mg/dL (9-20); Calcium 9.3 mg/dL (8.4-10.2); Carbon Dioxide 24 mmol/L (22-30); Chloride 106 mmol/L (98-107); Estimated CRCL calculation 107 ml/min; Estimated Glomerular Filt Rate > 60; Glucose 99 mg/dL (65-110); Magnesium 2.6 mg/dL (1.6-2.3); Potassium 3.7 mmol/L (3.4-5.0); Sodium 139 mmol/L (137-145)
--- NOTE | 2023-10-28 03:14 | PC.NURSE ---
0300 Poison control contacted, spoke with Pat[facility]. Their recomendation was to monitor pt 2 hours after narcan administration. EDP made aware.
[2023-10-28 03:20] VITALS: PULSE 78
[2023-10-28 04:50] VITALS: RESP 15
[2023-10-28 04:55] VITALS: BP 139/85; PULSE 89; RESP 15; O2SAT 99
[2023-10-28 05:22] LABS: Acetaminophen < 10 ug/mL (10-30); Ethanol < 10 mg/dL (<10); Salicylate < 1.0 mg/dL (2-20)
== END 2023-10-28 05:00 | disposition left against medical advice (07) ==
PROVIDERS: Emergency Provider Emergency Medicine
DX: T40.421A Poisoning by tramadol, accidental (unintentional), initial encounter (principal)
CPT/HCPCS: 36415; 70450; 80053; 80307; 83735; 84443; 85025; 93005; 99284